=== PATIENT | male | born 1990 | race African-American/Black ===

== ENCOUNTER 2017-02-22 19:12 | Emergency (ER) | payer BC, OTHER ==
[2017-02-22 19:23] VITALS: BP 116/73
[2017-02-22 19:52] LABS: BILIRUBIN,URINE NEGATIVE (NEGATIVE); PH,URINE 6.5 PH (5.0-7.5)
[2017-02-22 19:53] LABS: UA CHARGE (STRIP ONLY) YES; UR CULTURE IF IND NOT INDICATED
--- NOTE | 2017-02-22 20:25 | ED Physician Documentation ---
History of Present Illness - Stated complaint Stated Complaint: MALE - Chief complaint Chief Complaint: General - History obtained from History obtained from: Patient - History of Present Illness Timing: Other (Healthy 26-year-old gentleman, active duty in the [employer]. He has 2 chief complaints. One his was diagnosed with UTI 4-5 days ago and he was recommended to have it checked to see if he had one. He has no symptoms, no dysuria or discharge. Secondly for many months now he has had a nonpainful lump on testicle. He actually does not know which testicle it is on.) Review of Systems Constitutional: reports: Reviewed and negative Throat: reports: Reviewed and negative Cardiac: reports: Reviewed and negative PD PAST MEDICAL HISTORY - Past Medical History Past Medical History: No Cardiovascular: None Respiratory: None Neuro: None Endocrine/Autoimmune: None GI: None : None HEENT: None Psych: None Musculoskeletal: None Derm: None - Past Surgical History Past Surgical History: No - Present Medications Home Medications: Ambulatory Orders Medication Instructions Recorded Confirmed Acyclovir [Zovirax] 200 mg PO 5XD #25 capsule 08/03/15 02/22/17 - Allergies Allergies/Adverse Reactions: Allergies Allergy/AdvReac Type Severity Reaction Status Date / Time No Known Drug Allergies Allergy Verified 02/22/17 19:24 - Social History Does the pt smoke?: No Smoking Status: Never smoker Does the pt drink ETOH?: Yes ETOH Use: Wine, Beer, Liquor Does the pt have substance abuse?: No - Immunizations Immunizations are current?: Yes - POLST Patient has POLST: No PD ED PE NORMAL - Vitals Vital signs reviewed: Yes - General General: Alert and oriented X 3, No acute distress - Abdomen Abdomen: Soft, Non tender, Non distended - Male Male : Other (At the superior part of the right testicle there is a fluid- filled nontender lump consistent with a varicocele or hydrocele, no other testicular masses. No tenderness.) - Neuro Neuro: Alert and oriented X 3, Normal speech - Psych Psych: Normal mood, Normal affect Results - Vitals Vitals: Vital Signs - 24 hr 02/22/17 19:17 Temperature 36.3 C L Heart Rate 75 Respiratory 14 Rate Blood Pressure 116/73 O2 Saturation 97 Oxygen O2 Source Room air - Labs Labs: Laboratory Tests 02/22/17 19:30 Urine Color YELLOW Urine Clarity CLEAR Urine pH 6.5 Ur Specific [place] <=1.005 Urine Protein NEGATIVE Urine Glucose (UA) NEGATIVE Urine Ketones NEGATIVE Urine Occult Blood NEGATIVE Urine Nitrite NEGATIVE Urine Bilirubin NEGATIVE Urine Urobilinogen 0.2 (NORMAL) Ur Leukocyte Esterase NEGATIVE Ur Microscopic Review NOT INDICATED Urine Culture Comments NOT INDICATED Departure - Departure Disposition: Home, Self Care Clinical Impression: Testicular mass Condition: Good Record reviewed to determine appropriate education?: Yes Comments: As discussed based on your examination there is no evidence of UTI. The testicular lump seems like a hydrocele or varicocele. 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
== END 2017-02-22 20:28 | disposition home or self-care (01) ==
LOC: ED 19:12
DX: R22.9 Localized swelling, mass and lump, unspecified (principal); N50.89 Other specified disorders of the male genital organs
CPT/HCPCS: 81001; 81003; 87086; 99283